=== PATIENT | female | born 1970 | race Caucasian/White ===

== ENCOUNTER 2017-07-08 12:45 | Emergency (ER) | payer BC ==
[2017-07-08 13:28] VITALS: RESP 18
[2017-07-08] MEDS ORDERED: KETOROLAC 30 MG/ML 1 ML VIAL IVP STA (13:36)
[2017-07-08] MEDS ORDERED: SODIUM CHLORIDE 0.9% 1,000 ML IV STA (13:36)
[2017-07-08] MEDS ORDERED: MORPHINE SULFATE 2 MG/ML SYRINGE IVP ONE (13:36)
--- NOTE | 2017-07-08 13:41 | ED ---
Lower Extremity Injury HPI - General Chief Complaint: Extremity Injury, Lower Stated Complaint: Pain Left leg Time Seen by Provider: 07/08/17 13:30 Source: patient Mode of arrival: wheelchair Limitations: no limitations - History of Present Illness Initial Comments: 47 old female patient resents emergency department today for complaints of left lower extremity pain. Patient states that on Sunday she began having intermittent sharp pains to the posterior calf. Patient states that she felt she was dehydrated so she did drink some Gatorade which did relieve her symptoms. Patient states that over the weekend she has had intermittent pain however around 05 100 this morning the pain became much worse. She states now the pain is constant, she reports it is severe, and states that she also has intermittent sharp shooting pains that radiate up her leg. Patient states that she has had similar symptoms in the past when she has been dehydrated. She denies any injury to the leg. Denies any lower back pain. She states that she also has a headache, has felt dizzy occasionally, and occasional shortness of breath. Patient denies any recent fever, chills, chest pain, abdominal pain, nausea, vomiting, diarrhea, constipation, back pain, numbness, tingling, headache, visual changes, hematuria, dysuria, urinary frequency, urinary urgency , or any other complaints. - Related Data Previous Rx's Medication Instructions Recorded Cyclobenzaprine [Flexeril] 10 mg PO TID #15 tab 07/08/17 Ibuprofen [Motrin] 600 mg PO Q8HR PRN #30 tab 07/08/17 Allergies Allergy/AdvReac Type Severity Reaction Status Date / Time latex Allergy Anaphylaxis Verified 07/08/17 13:27 Review of Systems ROS Statement: Those systems with pertinent positive or pertinent negative responses have been documented in the HPI. ROS Other: All systems not noted in ROS Statement are negative. Past Medical History Past Medical History: No Reported History History of Any Multi-Drug Resistant Organisms: None Reported Additional Past Surgical History / Comment(s): Past Psychological History: No Psychological Hx Reported Smoking Status: Current every day smoker Past Alcohol Use History: Daily Past Drug Use History: None Reported General Exam Limitations: no limitations General appearance: alert, in no apparent distress, other (Patient is well- developed, well-nourished, in mild distress. Vital signs upon presentation were temperature 98.8, pulse [ ], respirations 18, blood pressure 145/78, pulse ox 99%.) Neck exam: Present: normal inspection. Absent: tenderness, meningismus, lymphadenopathy Respiratory exam: Present: normal lung sounds bilaterally. Absent: respiratory distress, wheezes, rales, rhonchi, stridor Cardiovascular Exam: Present: regular rate, normal rhythm, normal heart sounds. Absent: systolic murmur, diastolic murmur, rubs, gallop, clicks GI/Abdominal exam: Present: soft, normal bowel sounds. Absent: distended, tenderness, guarding, rebound, rigid Extremities exam: Present: normal inspection, full ROM, tenderness (Left calf tenderness.), normal capillary refill, other (Skin left lower trophies pink, warm, and dry. Cap refill is less than 3 seconds. Post tibial and pedal pulses are strong and equal bilaterally. No area of erythema, ecchymosis, or rash noted.). Absent: pedal edema, joint swelling, calf tenderness Back exam: Present: normal inspection. Absent: tenderness, rash noted Neurological exam: Present: alert, oriented X3, CN II-XII intact Psychiatric exam: Present: normal affect, normal mood Skin exam: Present: warm, dry, intact, normal color. Absent: rash Course Vital Signs 07/08/17 13:26 Temperature 98.8 F Pulse Rate 20 L Respiratory 18 Rate Blood Pressure 145/78 O2 Sat by Pulse 99 Oximetry Medical Decision Making - Medical Decision Making 47 year-old female patient presented to emergency department today for evaluation of left lower leg pain that radiates up into her hip. Patient labs were reviewed and were unremarkable. Ultrasound of the left lower extremity was negative for acute DVT or cyst. When discussing the possibility of a lumbar radiculopathy with the patient she did report that she has L5 degenerative disc. She states also that she remembers tweaking her back a couple of days ago. She denies any saddle anesthesia or loss of bowel or bladder control. Did discuss with patient that this could be the cause of her pain however she should follow-up with her primary care physician for recheck. She'll be given ibuprofen for anti-inflammatory pain relief as well as Flexeril for muscle relaxation. She is instructed to return here immediately for any new , worsening, or concerning symptoms. Patient verbalizes understanding and agrees with this plan. - Lab Data Result diagrams: 07/08/17 13:59 07/08/17 13:59 Lab Results 07/08/17 07/08/17 07/08/17 Range/Units 13:59 13:59 13:59 WBC 5.9 (3.8-10.6) k/uL RBC 4.26 (3.80-5.40) m/uL Hgb 12.9 (11.4-16.0) gm/dL Hct 38.0 (34.0-46.0) % MCV 89.3 (80.0-100.0) fL MCH 30.2 (25.0-35.0) pg MCHC 33.8 (31.0-37.0) g/dL RDW 14.5 (11.5-15.5) % Plt Count 212 (150-450) k/uL Neutrophils % 60 % Lymphocytes % 25 % Monocytes % 8 % Eosinophils % 3 % Basophils % 1 % Neutrophils # 3.5 (1.3-7.7) k/uL Lymphocytes # 1.5 (1.0-4.8) k/uL Monocytes # 0.5 (0-1.0) k/uL Eosinophils # 0.2 (0-0.7) k/uL Basophils # 0.1 (0-0.2) k/uL D-Dimer 0.25 (<0.60) mg/L FEU Sodium 137 (137-145) mmol/L Potassium 3.9 (3.5-5.1) mmol/L Chloride 107 (98-107) mmol/L Carbon Dioxide 22 (22-30) mmol/L Anion Gap 8 mmol/L BUN 10 (7-17) mg/dL Creatinine 0.70 (0.52-1.04) mg/dL Est GFR (MDRD) Af Amer >60 (>60 ml/min/1.73 sqM) Est GFR (MDRD) Non-Af >60 (>60 ml/min/1.73 sqM) Glucose 90 (74-99) mg/dL Calcium 9.5 (8.4-10.2) mg/dL Magnesium 1.6 (1.6-2.3) mg/dL Total Bilirubin 0.3 (0.2-1.3) mg/dL AST 22 (14-36) U/L ALT 36 (9-52) U/L Alkaline Phosphatase 63 (38-126) U/L Total Protein 6.5 (6.3-8.2) g/dL Albumin 4.0 (3.5-5.0) g/dL - Radiology Data Radiology results: report reviewed, image reviewed Ultrasound report impression by Dr. Damon shows negative for DVT no popliteal fossa cyst is seen. Disposition Clinical Impression: Lumbar radiculopathy, Leg pain Disposition: HOME SELF-CARE Condition: Good Instructions: Lumbar Radiculopathy (ED), Leg Pain (ED), Lower Back Exercises ( ED) Additional Instructions: Take medications as discussed. Follow up with her primary care physician for recheck in 1-2 days. Apply warm moist heat to the left hip and lower back area. Gentle stretching exercises. Return immediately for any new, worsening, or concerning symptoms. Prescriptions: Cyclobenzaprine [Flexeril] 10 mg PO TID #15 tab Ibuprofen [Motrin] 600 mg PO Q8HR PRN #30 tab PRN Reason: Pain Referrals: Ralf Soto MD [Primary Care Provider] - 1-2 days Time of Disposition: 15:08
[2017-07-08 14:11] LABS: Basophils # (A) 0.1 k/uL (0-0.2); Basophils % (A) 1 %; CH 31.2; CHCM 35.1; Eosinophils # (A) 0.2 k/uL (0-0.7); Eosinophils % (A) 3 %; HDW 2.28; HGB 12.9 gm/dL (11.4-16.0); Luc # (Auto) 0.16; Luc % (Auto) 3; Lymphocytes # (A) 1.5 k/uL (1.0-4.8); Lymphocytes % (A) 25 %; MCH 30.2 pg (25.0-35.0); MCHC 33.8 g/dL (31.0-37.0); MCV 89.3 fL (80.0-100.0); Mean Platelet Volume 7.5; Monocytes # (A) 0.5 k/uL (0-1.0); Monocytes % (A) 8 %; Neutrophils # (A) 3.5 k/uL (1.3-7.7); Neutrophils % (A) 60 %; RBC 4.26 m/uL (3.80-5.40); RDW 14.5 % (11.5-15.5); WBC 5.9 k/uL (3.8-10.6); WBC (Perox) 6.46
[2017-07-08 14:24] LABS: ALT 36 U/L (9-52); AST 22 U/L (14-36); Alkaline Phosphatase 63 U/L (38-126); Anion Gap 8 mmol/L; Blood Urea Nitrogen 10 mg/dL (7-17); Calcium 9.5 mg/dL (8.4-10.2); Carbon Dioxide 22 mmol/L (22-30); Chloride 107 mmol/L (98-107); Glucose 90 mg/dL (74-99); Magnesium 1.6 mg/dL (1.6-2.3); Non-African American GFR(MDRD) >60 (>60 ml/min/1.73 sqM); Potassium 3.9 mmol/L (3.5-5.1); Sodium 137 mmol/L (137-145); Total Bilirubin 0.3 mg/dL (0.2-1.3); Total Protein 6.5 g/dL (6.3-8.2)
--- NOTE | 2017-07-08 14:52 | US ---
EXAMINATION TYPE: US venous doppler duplex LE LT DATE OF EXAM: 07/08/2017 1:38 PM COMPARISON: NONE CLINICAL HISTORY: Pain. EC patient with severe left calf pain today. Patient denies swelling. SIDE PERFORMED: Left TECHNIQUE: The lower extremity deep venous system is examined utilizing real time linear array sonog lobo with graded compression, doppler sonography and color-flow sonography. VESSELS IMAGED: Common Femoral Vein Deep Femoral Vein Greater Saphenous Vein * Femoral Vein Popliteal Vein Small Saphenous Vein * Proximal Calf Veins (* superficial vessels) Left Leg: Negative for DVT. No popliteal fossa cyst is seen. IMPRESSION: Grayscale, color doppler, spectral doppler imaging performed of the deep veins of the lo wer extremities. There is normal flow, compressibility, vascular waveforms.
[2017-07-08 15:35] VITALS: BP 130/72; PULSE 78; TEMP 98.6
== END 2017-07-08 15:34 | disposition home or self-care (01) ==
LOC: EC 12:45
DX: M54.16 Radiculopathy, lumbar region (principal); M79.605 Pain in left leg; R51 Headache; F17.200 Nicotine dependence, unspecified, uncomplicated; Z91.048 Other nonmedicinal substance allergy status
CPT/HCPCS: 99284; 96374; 96375; 96361; 36415; 85379; 80053; 83735; 85025; 93971; J1885; J2270